=== PATIENT | female | born 1995 | race Caucasian/White ===

== ENCOUNTER 2023-08-25 13:48 | Emergency (ER) | payer OTHER ==
--- NOTE | 2023-08-25 14:31 | ED ---
Nausea/Vomiting/Diarrhea HPI - General Chief complaint: Nausea/Vomiting/Diarrhea Stated complaint: preg,NVD Time Seen by Provider: 08/25/23 14:00 Source: patient, RN notes reviewed Mode of arrival: ambulatory Limitations: no limitations - History of Present Illness Initial comments: This is a 28-year-old female, A2 who presents to the emergency department at roughly 9 weeks gestation chief complaint of nausea, vomiting, and constipation. Patient states that she has not had a full bowel movement in roughly the past 2 weeks, is still passing minimal gas. She is endorsing mild abdominal cramping and pain of the mid abdomen with radiation into the back. Patient denies vaginal bleeding or right upper quadrant abdominal pain or suprapubic cramping, fevers, dysuria, hematuria, increase in frequency or urgency. Patient states that her first appointment of the is scheduled for 08/27/2023. Patient also states that she has had multiple episodes of emesis over the past few days in the morning and is concerned that she is dehydrated. Patient was prescribed Zofran by her stringer machine tender but reports she has not taken any since Thursday due to concern for constipation. - Related Data Allergies Allergy/AdvReac Type Severity Reaction Status Date / Time No Known Allergies Allergy Verified 08/25/23 13:58 Review of Systems ROS Statement: Those systems with pertinent positive or pertinent negative responses have been documented in the HPI. ROS Other: All systems not noted in ROS Statement are negative. Past Medical History Past Medical History: No Reported History History of Any Multi-Drug Resistant Organisms: None Reported Past Surgical History: No Surgical Hx Reported Past Psychological History: No Psychological Hx Reported Past Alcohol Use History: None Reported Past Drug Use History: None Reported General Exam Limitations: no limitations General appearance: alert, in no apparent distress Head exam: Present: atraumatic, normocephalic, normal inspection Eye exam: Present: normal appearance, PERRL, EOMI. Absent: scleral icterus, conjunctival injection, periorbital swelling ENT exam: Present: normal exam, mucous membranes moist Neck exam: Present: normal inspection. Absent: tenderness, meningismus, lymphadenopathy Respiratory exam: Present: normal lung sounds bilaterally. Absent: respiratory distress, wheezes, rales, rhonchi, stridor Cardiovascular Exam: Present: regular rate, normal rhythm, normal heart sounds. Absent: systolic murmur, diastolic murmur, rubs, gallop, clicks GI/Abdominal exam: Present: soft, normal bowel sounds. Absent: distended, tenderness, guarding, rebound, rigid Extremities exam: Present: normal inspection, full ROM, normal capillary refill. Absent: tenderness, pedal edema, joint swelling, calf tenderness Back exam: Present: normal inspection, tenderness (bilateral lumbar) Neurological exam: Present: alert, oriented X3, CN II-XII intact Psychiatric exam: Present: normal affect, normal mood Skin exam: Present: warm, dry, intact, normal color. Absent: rash Course Vital Signs 08/25/23 08/25/23 13:56 18:55 Temperature 97.6 F 98.7 F Pulse Rate 65 80 Respiratory 18 16 Rate Blood Pressure 100/61 109/71 O2 Sat by Pulse 97 99 Oximetry Medical Decision Making - Medical Decision Making Was pt. sent in by a medical professional or institution (JONATHAN Martin, [employer], urgent care, hospital, or longterm...) When possible be specific @ -No Did you speak to anyone other than the patient for history (EMS, parent, family, police, friend...)? What history was obtained from this source @ -No Did you review nursing and triage notes (agree or disagree)? Why? @ -I reviewed and agree with nursing and triage notes Were old charts reviewed (outside hosp., previous admission, EMS record, old EKG, old radiological studies, urgent care reports/EKG's, longterm records)? Report findings @ -No old charts were reviewed Differential Diagnosis (chest pain, altered mental status, abdominal pain women, abdominal pain men, vaginal bleeding, weakness, fever, dyspnea, syncope, headache, dizziness, GI bleed, back pain, seizure, CVA, palpatations, mental health, musculoskeletal)? @ -Nausea and vomiting, , urinary tract infection, gastroenteritis, viral infection, constipation, list is not all inclusive. EKG interpreted by me (3pts min.). @ -None X-rays interpreted by me (1pt min.). @ -None done CT interpreted by me (1pt min.). @ -None done U/S interpreted by me (1pt. min.). @ -Vaginal and transabdominal ultrasound completed with an impression of a single intrauterine gestation estimated 8 weeks 6 days gestation, cardiac activity 162. Possible 1.5 cm subchorionic hemorrhage. What testing was considered but not performed or refused? (CT, X-rays, U/S, labs)? Why? @ -X-ray of the abdomen was considered but deferred due to patient being 9 weeks . What meds were considered but not given or refused? Why? @ -Offered Zofran for feelings of nausea but patient declined at this time due to concern for worsening constipation with medication use. Did you discuss the management of the patient with other professionals (professionals i.e. , PA, [employer], lab, RT, psych nurse, social worker palliative care, pit clerk, teacher, correction officer city or county jail, case liner)? Give summary @ -No Was smoking cessation discussed for >3mins.? @ -No Was critical care preformed (if so, how long)? @ -No Were there social determinants of health that impacted care today? How? (Homelessness, low income, unemployed, alcoholism, drug addiction, transportation, low edu. Level, literacy, decrease access to med. care, mcc, rehab)? @ -No Was there de-escalation of care discussed even if they declined (Discuss DNR or withdrawal of care, Hospice)? DNR status @ -No What co-morbidities impacted this encounter? (DM, HTN, Smoking, COPD, CAD, Cancer, CVA, ARF, Chemo, Hep., AIDS, mental health diagnosis, sleep apnea, morbid obesity)? @ -None Was patient admitted / discharged? Hospital course, mention meds given and route, prescriptions, significant lab abnormalities, going to OR and other pertinent info. @ -Discharged. 28-year-old female at 9 weeks gestation with constipation and nausea and vomiting. Comprehensive physical examination benign. Patient is not SA suprapubic cramping, right upper quadrant tenderness, or vaginal bleeding or weakness therefore cervical exam has been deferred. Patient will be evaluated. Laboratory studies including urinalysis and symptomatically treated with IV fluids due to history of multiple episodes of emesis. She is in agreement with this. CBC unremarkable, urinalysis reveals elevated ketones consistent with mild dehydration, CMP unremarkable. additionally, patient will be sent for ultrasound evaluation of the fetus to ensure there is an intrauterine due to abdominal cramping during . On reevaluation, patient states that she will still passing gas however has not had a bowel movement since administration of magnesium citrate. Further medication was offered to the patient such as an enema but she has declined at this time. Additionally ultrasound revealed a single intrauterine with a cardiac activity of 162. Recommend that patient follows up with OB as scheduled for further evaluation. Also recommend that patient continues to use stool softener at home in addition to a week course of MiraLAX to aid in constipation. Additionally increase oral fluid intake and fiber throughout the day. All questions answered at bedside and strict return parameters have discussed with the patient which she has verbalized understanding. Case discussed with my attending Dr. Teague Undiagnosed new problem with uncertain prognosis? @ -No Drug Therapy requiring intensive monitoring for toxicity (Heparin, Nitro, Insulin, Cardizem)? @ -No Were any procedures done? @ -No Diagnosis/symptom? @ -abdominal cramping during , intrauterine , constipation Acute, or Chronic, or Acute on Chronic? @ -Acute Uncomplicated (without systemic symptoms) or Complicated (systemic symptoms)? @ -uncomplicated Side effects of treatment? @ -No Exacerbation, Progression, or Severe Exacerbation? @ -No Poses a threat to life or bodily function? How? (Chest pain, [place], [place], pneumonia, PE, COPD, DKA, ARF, appy, cholecystitis, CVA, Diverticulitis, Homicidal, Suicidal, threat to staff... and all critical care pts) @ -No - Lab Data Result diagrams: 08/25/23 15:41 08/25/23 15:41 Lab Results 08/25/23 08/25/23 08/25/23 Range/Units 15:41 15:41 15:41 WBC 11.0 H (3.8-10.6) k/uL RBC 5.00 (3.80-5.40) m/uL Hgb 14.6 (11.4-16.0) gm/dL Hct 44.5 (34.0-46.0) % MCV 88.9 (80.0-100.0) fL MCH 29.2 (25.0-35.0) pg MCHC 32.9 (31.0-37.0) g/dL RDW 12.2 (11.5-15.5) % Plt Count 228 (150-450) k/uL MPV 7.4 Neutrophils % 84 % Lymphocytes % 11 % Monocytes % 4 % Eosinophils % 1 % Basophils % 0 % Neutrophils # 9.2 H (1.3-7.7) k/uL Lymphocytes # 1.2 (1.0-4.8) k/uL Monocytes # 0.4 (0-1.0) k/uL Eosinophils # 0.1 (0-0.7) k/uL Basophils # 0.1 (0-0.2) k/uL Sodium 136 L (137-145) mmol/L Potassium 3.7 (3.5-5.1) mmol/L Chloride 103 (98-107) mmol/L Carbon Dioxide 23 (22-30) mmol/L Anion Gap 10 mmol/L BUN 10 (7-17) mg/dL Creatinine 0.59 (0.52-1.04) mg/dL Est GFR (CKD-EPI)AfAm >90 (>60 ml/min/1.73 sqM) Est GFR (CKD-EPI)NonAf >90 (>60 ml/min/1.73 sqM) Glucose 90 (74-99) mg/dL Calcium 9.8 (8.4-10.2) mg/dL Total Bilirubin 0.5 (0.2-1.3) mg/dL AST 21 (14-36) U/L ALT 14 (4-34) U/L Alkaline Phosphatase 65 (38-126) U/L Total Protein 8.1 (6.3-8.2) g/dL Albumin 5.0 (3.5-5.0) g/dL HCG, Quant >052091.0 mIU/mL Urine Color Yellow Urine Appearance Clear (Clear) Urine pH 6.0 (5.0-8.0) Ur Specific [place] 1.028 (1.001-1.035) Urine Protein Negative (Negative) Urine Glucose (UA) Negative (Negative) Urine Ketones 1+ H (Negative) Urine Blood Negative (Negative) Urine Nitrite Negative (Negative) Urine Bilirubin Negative (Negative) Urine Urobilinogen 2.0 (<2.0) mg/dL Ur Leukocyte Esterase Negative (Negative) Disposition Clinical Impression: Constipation, Morning sickness, Intrauterine Disposition: HOME SELF-CARE Condition: Good Instructions (If sedation given, give patient instructions): Nausea and Vomiting in (ED), Constipation (DC) Additional Instructions: Return to the emergency department if symptoms worsen or not improved. Recommend to use MiraLAX [id number] over the next week to aid in constipation relief. Continue to use stool softener. Keep scheduled appointment with OB on . Is patient prescribed a controlled substance at d/c from ED?: No Referrals: Marcia Montenegro DO [Primary Care Provider] - 1-2 days Time of Disposition: 18:51
[2023-08-25] MEDS: SODIUM CHLORIDE 0.9% 1,000 ML IV STA (15:40)
[2023-08-25 15:59] LABS: Appearance,Urine Clear (Clear); Basophils # (A) 0.1 k/uL (0-0.2); Basophils % (A) 0 %; Bilirubin,Urine Negative (Negative); Blood,Urine Negative (Negative); Color,Urine Yellow; Eosinophils # (A) 0.1 k/uL (0-0.7); Eosinophils % (A) 1 %; Glucose,Urine (UA) Negative (Negative); HCT 44.5 % (34.0-46.0); HGB 14.6 gm/dL (11.4-16.0); Ketones,Urine 1+ (Negative); Leukocyte Esterase,Urine Negative (Negative); Lymphocytes # (A) 1.2 k/uL (1.0-4.8); Lymphocytes % (A) 11 %; MCH 29.2 pg (25.0-35.0); MCHC 32.9 g/dL (31.0-37.0); MCV 88.9 fL (80.0-100.0); Mean Platelet Volume 7.4; Monocytes # (A) 0.4 k/uL (0-1.0); Monocytes % (A) 4 %; Neutrophils # (A) 9.2 k/uL (1.3-7.7); Neutrophils % (A) 84 %; Nitrite,Urine Negative (Negative); Platelet Count 228 k/uL (150-450); Protein,Urine Negative (Negative); RDW 12.2 % (11.5-15.5); Specific Gravity,Urine 1.028 (1.001-1.035)
[2023-08-25] MEDS: PYRIDOXINE 100 MG/ML 1 ML VIAL IVP STA (15:59)
[2023-08-25] MEDS: MAGNESIUM CITRATE 296 ML BOTTLE PO ONE (15:59)
[2023-08-25 16:47] LABS: ALT 14 U/L (4-34); AST 21 U/L (14-36); African American GFR (CKD) >90 (>60 ml/min/1.73 sqM); Alkaline Phosphatase 65 U/L (38-126); Anion Gap 10 mmol/L; Blood Urea Nitrogen 10 mg/dL (7-17); Calcium 9.8 mg/dL (8.4-10.2); Carbon Dioxide 23 mmol/L (22-30); Chloride 103 mmol/L (98-107); Glucose 90 mg/dL (74-99); Non-African American GFR(CKD) >90 (>60 ml/min/1.73 sqM); Potassium 3.7 mmol/L (3.5-5.1); Sodium 136 mmol/L (137-145); Total Bilirubin 0.5 mg/dL (0.2-1.3); Total Protein 8.1 g/dL (6.3-8.2)
[2023-08-25 18:44] LABS: HCG,Quantitative Serum >225000.0 mIU/mL
--- NOTE | 2023-08-25 18:44 | US ---
EXAMINATION TYPE: Transabdominal DATE OF EXAM: 08/25/2023 6:15 PM COMPARISON: NONE CLINICAL INDICATION: Female, 28 years old with history of ab pain, est 9 weeks; nausea and vomiting, constipation EXAM PERFORMED: Transvaginal (TV) and Transabdominal (TA) EXAM MEASUREMENTS: GESTATIONAL AGE / DATING Dates by LMP: (9 weeks/0 days) EDC: 03/29/2024 Dates by First Scan: No previous this is first scan Dates by Current Scan for: (8 weeks/6 days) EDC: 03/30/2024 MATERNAL ANATOMY Uterus: 10.4 x 7.8 x 9.0cm. Single, viable IUP seen. Right Ovary: Unable to visualize due to overlying bowel Left Ovary: 2.3 x 2.5 x 2.9cm. WNL as best seen today Post CDS / Adnexa: Obscured by bowel gas Presence of free fluid: No free fluid seen today Presence of corpus luteal cyst: No Presence of subchorionic bleed: small 1.5cm anechoic area seen near the gestational sac GESTATION / SURVEY CRL: 2.2 (8 weeks/6 days) Yolk Sac (normal less than 6mm): 3mm Heart Rate: 162 bpm Rhythm: Normal IUP: Viable IUP Date of LMP: 06/23/2023 Beta HcG (if available): Not available at this time IMPRESSION: 1. Single intrauterine gestation estimated at 8 weeks 6 days gestation based on crown-rump length. Ca rdiac activity measures 1 62 bpm was observed during the study. 2. There may be a 1.5 cm subchorionic hemorrhage adjacent to the gestational sac
[2023-08-25 19:03] VITALS: BP 109/71; PULSE 80; RESP 16; TEMP 98.7
== END 2023-08-25 19:11 | disposition home or self-care (01) ==
LOC: EC 13:48
DX: O99.611 Diseases of the digestive system complicating pregnancy, first trimester (principal); K59.00 Constipation, unspecified; O26.891 Other specified pregnancy related conditions, first trimester; M54.50 Low back pain, unspecified; Z3A.09 9 weeks gestation of pregnancy
CPT/HCPCS: 36415; 80053; 85025; 81003; 84702; 76801; 76817; 99284; 96374; J3415

== ENCOUNTER 2024-02-10 09:18 | Outpatient (CLI) | payer OTHER ==
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
[2024-02-10 13:13] VITALS: BP 128/58; PULSE 94; RESP 17; TEMP 98.5
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
== END 2024-02-10 12:45 ==
LOC: FBPOP 09:18
PROVIDERS: ATTEND Obstetrics & Gynecology Obstetrics
DX: O9A.213 Injury, poisoning and certain other consequences of external causes complicating pregnancy, third trimester (principal); Z3A.33 33 weeks gestation of pregnancy; G89.11 Acute pain due to trauma; V89.9XXA Person injured in unspecified vehicle accident, initial encounter
CPT/HCPCS: 59025; 76805; 99213

== ENCOUNTER 2024-03-22 06:00 | Inpatient (IN) | payer OTHER ==
[2024-03-22] MEDS ORDERED: LIDOCAINE 0.5% (PF) 5 MG/ML (50 ML SDV) SQ PRN (06:26)
[2024-03-22] MEDS ORDERED: OXYTOCIN 10 UNIT/ML 1 ML VIAL IM PRN (06:26)
[2024-03-22] MEDS ORDERED: miSOPROStoL 200 MCG TAB PO PRN (06:26)
[2024-03-22] MEDS ORDERED: CARBOPROST TROMETHAMINE 250 MCG/ML 1 ML AMP IM PRN (06:26)
[2024-03-22] MEDS ORDERED: miSOPROStoL 200 MCG TAB RECTAL PRN (06:26)
[2024-03-22] MEDS ORDERED: TRANEXAMIC 1,000 MG/100ML-NACL 1,000 MG in EMPTY BAG 1 BAG IV PRN (06:26)
[2024-03-22] MEDS ORDERED: TERBUTALINE 1 MG/ML VIAL SQ PRN (06:26)
[2024-03-22] MEDS ORDERED: METHYLERGONOVINE 0.2 MG/ML 1 ML AMP IM PRN (06:26)
[2024-03-22] MEDS: LACTATED RINGERS 500 ML IV SCH (06:30)
[2024-03-22 06:45] LABS: Basophils % (A) 0 %; Eosinophils # (A) 0.1 k/uL (0-0.7); Eosinophils % (A) 1 %; HCT 38.6 % (34.0-46.0); HGB 13.4 gm/dL (11.4-16.0); Lymphocytes # (A) 2.3 k/uL (1.0-4.8); Lymphocytes % (A) 20 %; MCHC 34.6 g/dL (31.0-37.0); MCV 89.8 fL (80.0-100.0); Monocytes # (A) 0.4 k/uL (0-1.0); Monocytes % (A) 4 %; Neutrophils # (A) 8.7 k/uL (1.3-7.7); Neutrophils % (A) 74 %; Platelet Count 222 k/uL (150-450); RDW 14.3 % (11.5-15.5); WBC 11.7 k/uL (3.8-10.6)
[2024-03-22] MEDS: OXYTOCIN 30 UNITS/500 ML NS 30 UNIT in SALINE 1 500ML.BAG IV SCH (07:00)
[2024-03-22] MEDS: AMPICILLIN 2,000 MG in SODIUM CHLORIDE 0.9% 100 ML IVPB STA (07:38)
[2024-03-22] MEDS ORDERED: NALBUPHINE 10 MG/ML (10 ML MDV) IV PRN (08:42)
[2024-03-22] MEDS: LACTATED RINGERS 1,000 ML BAG IV STA (11:29)
[2024-03-22] MEDS: AMPICILLIN 1,000 MG in SODIUM CHLORIDE 0.9% 50 ML IVPB SCH (11:30)
[2024-03-22] MEDS ORDERED: ROPIVACAINE 5 MG/ML 30 ML VIAL ONE (14:47)
[2024-03-22] MEDS ORDERED: SODIUM CHLORIDE 0.9% 250 ML BAG ONE (14:47)
[2024-03-22] MEDS ORDERED: fentaNYL (PF) 50 MCG/ML 5 ML AMP ONE (14:47)
[2024-03-22 19:23] VITALS: RESP 16
[2024-03-22] MEDS: IBUPROFEN 800 MG TAB PO PRN (23:12)
[2024-03-23] MEDS: ACETAMINOPHEN TAB 325 MG TAB PO PRN (03:34)
[2024-03-23] MEDS ORDERED: ZOLPIDEM 5 MG TAB PO PRN (07:24)
[2024-03-23] MEDS ORDERED: SIMETHICONE 80 MG CHEWABLE PO PRN (07:24)
[2024-03-23] MEDS ORDERED: HYDROCORTISONE 2.5% RECTAL CREAM 30 GM TUBE RECTAL PRN (07:24)
[2024-03-23] MEDS ORDERED: LANOLIN CREAM 1 GM TUBE TOPICAL PRN (07:24)
[2024-03-23] MEDS ORDERED: diphenhydrAMINE 50 MG/ML 1 ML VIAL IVP PRN ×2 (07:24)
[2024-03-23] MEDS ORDERED: diphenhydrAMINE 50 MG CAP PO PRN (07:24)
[2024-03-23] MEDS ORDERED: diphenhydrAMINE 25 MG CAP PO PRN (07:24)
[2024-03-23] MEDS ORDERED: BENZOCAINE/MENTHOL SPRAY 1 GM/SPRAY AEROSOL TOPICAL PRN (07:24)
--- NOTE | 2024-03-23 07:26 | P.PROBDLV ---
Vaginal Delivery Note - . Vaginal Delivery Note: Viable male delivered at 1910, weight of 7 pounds 10 ounces. A 9-year-old 4 para 1-0-2-1 at 39-0/7 weeks presented to labor and delivery on 1113 for induction of labor. Patient had been receiving routine care which had been essentially uncomplicated. Patient was admitted and Pitocin induction of labor was begun. Patient progressed through labor eventually becoming uncomfortable and requesting epidural. Epidural was placed without difficulty by the anesthesia department. Patient progressed to complete began pushing and had a normal spontaneous vaginal delivery of a viable male infant at 1910, weight of 7 pounds 10 ounces, Apgars of 9 and 9 at 1 and 5 minutes respectively. After 2-minute delay the umbilical cord was doubly clamped and cut. The placenta was delivered spontaneously intact with a three- vessel cord being noted. Inspection the patient's vaginal vault superficial lacerations were appreciated nothing was bleeding therefore no suture repair was needed. Uterus was noted to be firm and below the umbilicus. All counts were noted be correct x 2 at the end of the delivery. Patient and tolerated delivery well and are resting comfortably.
--- NOTE | 2024-03-23 07:27 | P.HPOB ---
History of Present Illness H&P Date: 03/22/24 Chief Complaint: IUP at 39 weeks This is a 29-year-old 4 para 1-0-2-1 at 39 weeks of the presents for induction of labor. Patient has been receiving routine care which has been essentially uncomplicated. Patient notes good movement. She denies contractions. She denies vaginal bleeding or loss of fluid. blood work this patient is a blood type of O+, rubella status immune, hepatitis B surface engine negative, HIV negative, RPR is nonreactive, grew beta strep culture is unknown. Review of Systems Constitutional: Denies chills, Denies fatigue, Denies fever Ears, nose, mouth and throat: Denies headache Cardiovascular: Reports leg edema Respiratory: Denies dyspnea Gastrointestinal: Denies nausea, Denies vomiting Genitourinary: Reports Past Medical History Past Medical History: No Reported History History of Any Multi-Drug Resistant Organisms: None Reported Past Surgical History: No Surgical Hx Reported Additional Past Surgical History / Comment(s): Pileanidal cyst surgery Past Anesthesia/Blood Transfusion Reactions: No Reported Reaction Past Psychological History: No Psychological Hx Reported Smoking Status: Former smoker Past Alcohol Use History: None Reported Past Drug Use History: None Reported Medications and Allergies Home Medications Medication Instructions Recorded Confirmed Type Docusate [Colace] 100 mg PO DAILY 02/10/24 03/23/24 History Loratadine [Claritin] 10 mg PO DAILY 02/10/24 03/23/24 History Vit No.179/Iron/Folic 1 each PO DAILY 02/10/24 03/23/24 History [ Tablet] Allergies Allergy/AdvReac Type Severity Reaction Status Date / Time No Known Allergies Allergy Verified 03/22/24 06:24 Exam Osteopathic Statement: *. No significant issues noted on an osteopathic structural exam other than those noted in the History and Physical/Consult. Vital Signs Temp Pulse Resp BP Pulse Ox 03/22/24 06:24 97.6 F 105 H 15 128/72 97 Intake and Output 03/21/24 03/22/24 03/22/24 22:59 06:59 14:59 Other: Weight 88.451 kg Targeted physical exam is performed this date General Is well-nourished well- developed female in no acute distress, breathing is nonlabored, heart has a regular rate and rhythm, abdomen is gravid, on cervical exam she is 2/50/- 2 station amniotomy is performed and clear fluid was obtained. heart tones are noted to be category 1 and she is radha every 3 minutes. Pitocin is at 2 milliunits. Results Result Diagrams: 03/22/24 06:30 Abnormal Lab Results - Last 24 Hours (Table) 03/22/24 Range/Units 06:30 WBC 11.7 H (3.8-10.6) k/uL Neutrophils # 8.7 H (1.3-7.7) k/uL Assessment and Plan (1) Term Current Visit: Yes Status: Acute Code(s): Z34.90 - ENCNTR FOR SUPRVSN OF NORMAL , UNSP, UNSP TRIMESTER SNOMED Code(s): 26116595 Plan: 29-year-old 4 para 1-0-2-1 at 39 weeks presents for induction of labor. Pitocin induction of labor is begun per hospital protocol. Patient is counseled on options for analgesia during labor. Patient will consider. Anticipate spontaneous vaginal delivery later today.
[2024-03-23] MEDS ORDERED: OXYTOCIN 30 UNITS/500 ML NS 30 UNIT in SALINE 1 500ML.BAG IV SCH (07:30)
--- NOTE | 2024-03-23 07:36 | P.PNOBGVD ---
Subjective - Subjective Principal diagnosis: day #1 Interval history: Patient is doing well . She is ambulating and voiding without difficulty. She is tolerating a regular diet. Her lochia is minimal to moderate. She is breast-feeding. Patient reports: Reports appetite normal, Reports voiding normally, Reports pain well controlled, Reports ambulating normally [place]: doing well, nursing well Objective - Latest Vital Signs Latest vital signs: Vital Signs Temp Pulse Resp BP Pulse Ox 03/23/24 00:00 98.1 F 111 H 16 123/72 98 03/22/24 21:19 98.4 F 90 16 110/60 03/22/24 21:04 83 16 103/63 03/22/24 20:49 78 16 114/66 03/22/24 20:34 81 16 112/66 03/22/24 20:19 77 16 110/67 03/22/24 20:04 86 16 113/67 03/22/24 19:49 76 16 121/61 03/22/24 19:34 75 16 126/65 03/22/24 19:19 98.0 F 80 16 121/64 Intake and Output 03/22/24 03/23/24 03/23/24 22:59 06:59 14:59 Intake Total 414.767 Output Total 100 292 Balance 314.767 -292 Intake: Intake, IV Titration 414.767 Amount Oxytocin 30 Units/500 ml 414.767 Ns 30 unit In Saline 1 500ml.bag @ Per Protocol IV .Q0M [facility] Rx#:[id number] Output: Output, Quantitative 100 292 Blood Loss Other: # Voids 2 - Exam Extremities: Present: normal, edema Abdomen: Present: normal appearance Uterus: Present: normal, firm Assessment and Plan (1) Term Current Visit: Yes Status: Acute Code(s): Z34.90 - ENCNTR FOR SUPRVSN OF NORMAL , UNSP, UNSP TRIMESTER SNOMED Code(s): 97807291 (2) Status post normal vaginal delivery Current Visit: Yes Status: Acute Code(s): MKL7139 - SNOMED Code(s): 116001039 Plan: Patient is doing well . Will plan to continue routine care.
[2024-03-23] MEDS: SENNOSIDES-DOCUSATE SODIUM 1 EACH TAB PO SCH (08:09)
--- NOTE | 2024-03-23 12:53 | P.DS ---
Providers Date of admission: 03/22/24 06:04 Expected date of discharge: 03/23/24 Attending physician: Myra Zendejas Primary care physician: Stated None - Discharge Diagnosis(es) (1) Term Current Visit: Yes Status: Acute (2) Status post normal vaginal delivery Current Visit: Yes Status: Acute Hospital Course: 29-year-old 4 now para 2-0-2-2 that presented to labor and delivery at 39-0/7 weeks for elective induction of labor. Patient had been receiving routine care which had been essentially uncomplicated. For full detail in the patient please the dictated history and physical. Patient was admitted and Pitocin induction of labor was begun per hospital protocol. Patient underwent amniotomy and clear fluid was obtained. Patient progressed through labor eventually becoming uncomfortable and requesting epidural placement. Epidural was placed without difficulty by the anesthesia department. Patient progressed to complete began pushing and had normal spontaneous vaginal delivery of a viable male at 1911, weight of 7 pounds 10 ounces. No vaginal lacerations were appreciated at the time of delivery. Patient's post course has been uneventful. In this day #1 she is ambulating and voiding without difficulty. She is tolerating a regular diet without nausea or vomiting. States her pain is well-controlled. She denies concerns. She is breast-feeding without difficulty. She would like discharge home at 24 hours. Patient Condition at Discharge: Good Plan - Discharge Summary New Discharge Prescriptions: No Action Loratadine [Claritin] 10 mg PO DAILY Docusate [Colace] 100 mg PO DAILY Vit No.179/Iron/Folic [ Tablet] 1 each PO DAILY Discharge Medication List Docusate [Colace] 100 mg PO DAILY 02/10/24 [History] Loratadine [Claritin] 10 mg PO DAILY 02/10/24 [History] Vit No.179/Iron/Folic [ Tablet] 1 each PO DAILY 02/10/24 [History] Follow up Appointment(s)/Referral(s): Myra Zendejas DO [Doctor of Osteopathic Medicine] - 05/02/24 11:30 am Patient Instructions/Handouts: Vaginal Delivery (DC), Vaginal Delivery (GEN) Activity/Diet/Wound Care/Special Instructions: No tub baths or intercourse until 6 weeks . [id number] ibuprofen 600 mg or 3 tablets every 6 hours as needed for pain. Patient is to follow-up in the office at 6 weeks for routine check. Should she have any concerns prior to this visit she is urged to call the office. Discharge Disposition: HOME SELF-CARE
[2024-03-23] MEDS: ACETAMINOPHEN TAB 500 MG TAB PO SCH (16:21)
[2024-03-23 16:29] VITALS: BP 105/70; PULSE 82; TEMP 97.6
== END 2024-03-23 19:54 | disposition home or self-care (01) | DRG 807 ==
LOC: 4FBP 06:04
PROVIDERS: ADMIT Obstetrics & Gynecology Obstetrics; ATTEND Obstetrics & Gynecology Obstetrics
PROC: 10907ZC Drainage of Amniotic Fluid, Therapeutic from Products of Conception, Via Natural or Artificial Opening (ICD-10-PCS; principal; 2024-03-22)
PROC: 3E033VJ Introduction of Other Hormone into Peripheral Vein, Percutaneous Approach (ICD-10-PCS; principal; 2024-03-22)
PROC: 10E0XZZ Delivery of Products of Conception, External Approach (ICD-10-PCS; principal; 2024-03-22)
DX: O80 Encounter for full-term uncomplicated delivery (principal); Z87.891 Personal history of nicotine dependence; Z3A.39 39 weeks gestation of pregnancy; Z37.0 Single live birth
CPT/HCPCS: 85025; 86850; 86900; 86901

== ENCOUNTER → 2024-07-11 | Outpatient (CLI) | payer OTHER ==
--- NOTE | 2024-07-11 15:15 | USB ---
Reason for Exam: Clinical finding. Technique: Method: Targeted. Findings: The upper inner quadrant of the right breast, the area of palpable concern of the right breast, the axilla of the right breast and the retroareolar of the right breast were scanned. Technique utilized:US breast limited RT Image; Ultrasound imaging of: Area of concern, retroareolar region and axilla. No evidence for organizing fluid collection or mass. Few atelectatic ducts near the nipple. Overall Assessment: Benign, BI-RAD 2 Management: Screening Mammogram of both breasts at age 42. A clinical breast exam by your physician is recommended on an annual basis and results should be correlated with mammographic findings. This exam should not preclude additional follow-up of suspicious palpable abnormalities. Results were given to the patient verbally at the time of exam. [facility], , 07/11/2024 3:10 PM. Electronically signed and approved by: Zacarias Calderon DO
== END | disposition home or self-care (01) ==
LOC: RADUSWWP 14:43
PROVIDERS: ATTEND Obstetrics & Gynecology Obstetrics
DX: N63.10 Unspecified lump in the right breast, unspecified quadrant (principal)